=== PATIENT | male | born 2000 | race Caucasian/White ===

== ENCOUNTER 2019-03-29 15:49 | Emergency (ER) | payer MEDICAID ==
[~2019-03-29] VITALS: Ht 172.7 cm; Wt 61.2 kg
[2019-03-29 15:50] VITALS: BP_SYST 116
--- NOTE | 2019-03-29 15:50 | NUR ---
BROUGHT BACK TO BED #7 AND TRIAGED. REPORT GIVEN TO ADELA
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
--- NOTE | 2019-03-29 16:08 | NUR ---
EMILIANO Alfred at bedside examining patient.
[2019-03-29] MEDS ORDERED: IBUPROFEN 800 MG TABLET PO ONE (16:15)
[2019-03-29] MEDS ORDERED: MIDAZOLAM HCL 5 MG/5 ML VIAL IVP ONE (17:15)
[2019-03-29] MEDS ORDERED: MORPHINE 4 MG/ML INJ. SYRINGE IVP ONE (17:15)
--- NOTE | 2019-03-29 17:49 | NUR ---
at bedside re-examining patient.
--- NOTE | 2019-03-29 17:50 | NUR ---
# 20 gauge angiocath placed to RAC. Use of asceptic technique. Opsite placed over site. Blood return noted. Flushed with 10 cc of normal saline. No evidence of infiltration noted. Patient tolerated well.
[2019-03-29] MEDS ORDERED: BACITRACIN 1 GM OINT TP ONE (18:00)
--- NOTE | 2019-03-29 18:08 | NUR ---
Abrasions cleaned with normal saline and betadine, topical ointment and band aid applied. Patient tolerated well.
[2019-03-29 18:16] VITALS: BP_SYST 121
--- NOTE | 2019-03-29 18:16 | NUR ---
Patient given written and verbal discharge instructions and verbalizes understanding. ER MD Edward discussed with patient the results and treatment provided. Patient in stable condition. ID arm band removed. IV catheter removed intact and dressing applied, no active bleeding. Rx of Ibuprofen and Flexeril given. Patient educated on pain management and to follow up with PMD in 2-3 days. Pain Scale 0/10 Opportunity for questions provided and answered. Medication side effect fact sheet provided.
--- NOTE | 2019-03-29 18:24 | NUR ---
Note undone in ED - 03/29/19 at 1825 by [email or web address] # 20 gauge angiocath placed to RAC. Use of asceptic technique. Opsite placed over site. Blood return noted. Flushed with 10 cc of normal saline. No evidence of infiltration noted. Patient tolerated well.
== END 2019-03-29 18:24 | disposition home or self-care (01) ==
LOC: SED 15:49
DX: S40.011A Contusion of right shoulder, initial encounter (principal); S60.312A Abrasion of left thumb, initial encounter; S60.411A Abrasion of left index finger, initial encounter; S80.211A Abrasion, right knee, initial encounter; V19.9XXA Pedal cyclist (driver) (passenger) injured in unspecified traffic accident, initial encounter; Y93.89 Activity, other specified; Y92.410 Unspecified street and highway as the place of occurrence of the external cause; Y99.8 Other external cause status
CPT/HCPCS: 73030; 73564; 96374; 96375; 99283; J2250; J2270